=== PATIENT | female | born 1985 | race Caucasian/White ===

== ENCOUNTER → 2021-02-25 13:10 | Observation (INO) ==
[2021-02-25 12:51] LABS: Bilirubin,Urine Negative (Negative); Blood,Urine Negative (Negative); Calcium Oxalate Crystals,Urine Present per hpf; Clarity,Urine Turbid (Clear); Color,Urine Yellow (Yellow); Glucose,Urine (UA) Normal (Normal); Ketones,Urine Negative (Negative); Leukocyte Esterase,Urine Small (Negative); Mucus,Urine Few per lpf (None-Few); Nitrite,Urine Negative (Negative); PH,Urine 5.5 pH Units (5.0-8.0); Protein,Urine 30 mg/dL (Neg-Trace); RBC,Urine 0-3 per hpf (0-3); Specific Gravity,Urine > 1.030 (1.010-1.025); Squamous Epithelial Cell,Urine Few per hpf (None-Few); Urobilinogen,Urine Normal (Normal)
== END | disposition home or self-care (01) ==
LOC: 1NENULAB
PROVIDERS: ADMIT Obstetrics & Gynecology; ATTEND Obstetrics & Gynecology

== ENCOUNTER 2021-04-20 08:52 | Inpatient (IN) ==
[2021-04-20] MEDS ORDERED: Ondansetron 4 MG/2 ML VIAL IVP ONE (09:49)
[2021-04-20] MEDS: Ringers Solution, Lactated 1,000 ML IVC SCH ×2 (10:04→11:03)
== END 2021-04-20 13:58 | disposition home or self-care (01) | DRG 833 ==
LOC: 1NENULAB 08:52
PROVIDERS: ADMIT Registered Nurse; ATTEND Registered Nurse

== ENCOUNTER 2021-04-26 21:56 | Inpatient (IN) ==
[2021-04-26] MEDS ORDERED: Famotidine 20 MG/2 ML VIAL IVP PRN (22:03)
[2021-04-26] MEDS ORDERED: Metoclopramide 10 MG/2 ML VIAL IVP PRN (22:03)
[2021-04-26] MEDS ORDERED: Ondansetron 4 MG/2 ML VIAL IVP PRN (22:03)
[2021-04-26] MEDS ORDERED: *HR* Nalbuphine 10 MG/ML AMPUL IV PRN (22:03)
[2021-04-26] MEDS ORDERED: Naloxone 0.4 MG/ML INJ IVP PRN (22:03)
[2021-04-26] MEDS ORDERED: Azithromycin 500 MG in 0.9 % Sodium Chloride 250 ML IVPB PRN (22:03)
[2021-04-26] MEDS ORDERED: Oxytocin 20 units/ LR 1000 mL 20 UNIT/1,000 ML BAG IVC SCH (22:15)
[2021-04-26 22:41] LABS: Basophils # 0.1 K/mcL (0.0-0.2); Basophils % 0.5 %; Eosinophils # 0.1 K/mcL (0.0-0.6); Eosinophils % 1.1 %; Hematocrit 41.3 % (35.3-44.9); Hemoglobin 13.4 g/dL (11.5-15.4); Immature Granulocytes % 0.8 % (0-4); Lymphocytes # 2.9 K/mcL (0.6-4.6); Lymphocytes % 26.8 %; Mean Corpuscular HGB Conc 32.4 g/dL (31.6-35.5); Mean Corpuscular Hemoglobin 27.4 pg (28.0-33.3); Mean Corpuscular Volume 84.5 fL (83.0-100.0); Mean Platelet Volume 9.4 fL (9.4-12.4); Monocytes # 0.7 K/mcL (0.0-1.3); Monocytes % 6.8 %; Platelet Count 359 K/mcL (140-400); Red Blood Count 4.89 M/mcL (3.82-4.97); Red Cell Distribution Width 14.9 % (11.5-14.5)
[2021-04-26 22:54] LABS: Amphetamine Screen,Urine Negative ng/mL (Cutoff=1000); Barbiturate Screen,Urine Negative ng/mL (Cutoff=200); Benzodiazepines Screen,Urine Negative ng/mL (Cutoff=200); Cannabinoid Screen,Urine Negative ng/mL (Cutoff = 50); Cocaine Screen,Urine Negative ng/mL (Cutoff= 300); Opiate Screen,Urine Negative ng/mL (Cutoff=300); Phencyclidine Screen,Urine Negative ng/mL (Cutoff=25)
[2021-04-27] MEDS ORDERED: EPHEDrine 50 MG/ML VIAL IVP PRN (06:48)
[2021-04-27] MEDS: Ringers Solution, Lactated 1,000 ML IVC SCH ×3 (08:55→21:08)
[2021-04-27] MEDS: Epidural Premix (fent/bupiv) 110 ML EP SCH ×3 (12:34→22:28)
[2021-04-27] MEDS ORDERED: Acetaminophen 325 MG TABLET PO STA (17:18)
[2021-04-28] MEDS ORDERED: Lanolin 7 G OINT...G. TP PRN (03:02)
[2021-04-28] MEDS ORDERED: Benzocaine/Menthol 56 GM AEROSOL SPRAY TP PRN (03:02)
[2021-04-28] MEDS ORDERED: Ondansetron ODT 4 MG TAB.RAPDIS SL PRN (03:02)
[2021-04-28] MEDS ORDERED: Oxytocin 20 units/ LR 1000 mL 20 UNIT/1,000 ML BAG IVC SCH (03:02)
[2021-04-28] MEDS: Acetaminophen 325 MG TABLET PO SCH ×3 (03:29→15:52)
[2021-04-28] MEDS: Ibuprofen 600 MG TABLET PO SCH ×3 (03:29→15:52)
[2021-04-28] MEDS: Prenatal Vit/FA 1 EACH TABLET PO SCH (08:55)
[2021-04-28 16:05] VITALS: O2SAT 96
[2021-04-28 20:04] VITALS: TEMP 98
[2021-04-29] MEDS: Ibuprofen 600 MG TABLET PO SCH ×2 (02:14→09:48)
[2021-04-29] MEDS: Acetaminophen 325 MG TABLET PO SCH ×2 (02:14→09:48)
[2021-04-29 06:37] VITALS: BP 106/73; PULSE 70
[2021-04-29] MEDS: Prenatal Vit/FA 1 EACH TABLET PO SCH (09:49)
== END 2021-04-29 13:15 | disposition home or self-care (01) | DRG 806 ==
LOC: 1NENULAB 21:56 → 1NENUOBS 04-28 03:25
PROVIDERS: ADMIT Obstetrics & Gynecology; ATTEND Obstetrics & Gynecology